=== PATIENT | male | born 1970 | race Caucasian/White ===

== ENCOUNTER 2020-09-14 14:23 | Emergency (ER) | payer BC, OTHER, SELFPAY ==
[~2020-09-14] VITALS: Ht 188 cm; Wt 93.0 kg
--- NOTE | 2020-09-14 14:39 | NUR ---
BIBA FROM HOME FOR C/O PALPITATIONS, PT REPORTS FEELING LIGHTHEADEDNESS AND SOB WHILE FEELING PALPITATIONS. PT REPORTS HX OF COVID POSITIVE IN AFTER RETURNING FROM OVERSEAS. PLACED ON VITALS AND CARDIAC MONITORS. FRIEND AT BEDSIDE. CALL LIGHT WITHIN REACH.
--- NOTE | 2020-09-14 15:08 | NUR ---
CXR AT BEDSIDE.
[2020-09-14 15:24] LABS: BASOPHILS % (AUTO) 1 % (0-1); EOSINOPHILS % (AUTO) 1 % (1-7); LYMPHOCYTES % (AUTO) 8 % (22-44); MD NO; MEAN CORPUSCULAR HEMOGLOBIN 31.9 pg (27.5-34.5); MEAN CORPUSCULAR HGB CONC 33.7 g/dL (33.2-36.2); MEAN PLATELET VOLUME 7.1 fL (7.4-10.4); MONOCYTES % (AUTO) 11 % (2-9); NEUTROPHILS % (AUTO) 80 % (42-75); PLATELET COUNT 226 x10^3/uL (130-400); RED BLOOD COUNT 5.12 x10^6/uL (4.38-5.82); RED CELL DISTRIBUTION WIDTH 15.3 % (9.4-14.8)
[2020-09-14 15:35] LABS: ALBUMIN 4.7 g/dL (3.4-5.0); ANION GAP 8 mmol/L (5-15); CALCIUM 9.6 mg/dL (8.5-10.1); CHLORIDE 105 mmol/L (98-107)
[2020-09-14 15:49] LABS: ALANINE AMINOTRANSFERASE 44 U/L (12-78); ALKALINE PHOSPHATASE 65 U/L (45-117); BILIRUBIN,TOTAL 0.7 mg/dL (0.2-1.0); CREATININE 1.28 mg/dL (0.7-1.3); T4 (THYROXINE) 5.8 mcg/dL (4.5-12.1); TOTAL PROTEIN 8.4 g/dL (6.4-8.2); TROPONIN I < 0.015 ng/mL (0.000-0.045)
[2020-09-14 17:00] VITALS: BP 144/87
== END 2020-09-14 17:34 | disposition home or self-care (01) ==
LOC: ED 17:11
DX: R00.2 Palpitations (principal); R42 Dizziness and giddiness; R06.00 Dyspnea, unspecified; R07.9 Chest pain, unspecified; R00.0 Tachycardia, unspecified
CPT/HCPCS: 36415; 71045; 80053; 83880; 84436; 84443; 84484; 85025; 85379; 93005; 99285